=== PATIENT | male | born 1955 | race Caucasian/White ===

== ENCOUNTER 2021-06-19 16:37 | Inpatient (IN) | payer MEDICARE, OTHER ==
[~2021-06-19] VITALS: Ht 190.5 cm; Wt 71.0 kg
[2021-06-19] MEDS ORDERED: SODIUM CHLORIDE 0.9% 1,000 ML IV ONE ×2 (17:00→18:00)
[2021-06-19] MEDS ORDERED: NOREPINEPHRINE 8 MG/250ML KIT 250 ML IV ONE (17:44)
[2021-06-19] MEDS ORDERED: NOREPINEPHRINE 8 MG/250ML KIT 250 ML IV SCH (18:00)
[2021-06-19] MEDS ORDERED: IOHEXOL 350 MG/ML 100ML IJ ONE (18:14)
[2021-06-19 19:30] LABS: Albumin 2.8 g/dL (3.4-5.0); Calcium 7.7 mg/dL (8.5-10.1); Potassium 4.2 mmol/L (3.5-5.1)
[2021-06-19 19:36] LABS: BUN/Creatinine Ratio 16.3; Bilirubin, Total 2.1 mg/dL (0.2-1.0)
[2021-06-19 19:56] LABS: Basophils # (auto) 0 10 ^3/uL (0-0.2); Basophils % (auto) 0.1 % (0.0-2.0); Eosinophils # (auto) 0 10 ^3/uL (0-0.8); Hematocrit 37.7 % (41.0-53.0); Hemoglobin 12.6 g/dL (13.5-17.5); Lymphocytes # (auto) 0.6 10 ^3/uL (0.4-5.4); Lymphocytes % (auto) 3.4 % (10.0-50.0); Mean Corpuscular Hemoglobin 29.8 pg (28.0-32.0); Mean Corpuscular Hgb Conc. 33.4 g/dL (32.0-36.0); Mean Corpuscular Volume 89.3 fL (80.0-100.0); Monocytes # (auto) 0.8 10 ^3/uL (0-1.3); Monocytes % (auto) 4.4 % (0.0-12.0); Neutrophils % (auto) 92.1 % (37.0-80.0); Red Blood Cells 4.22 10^6/uL (4.5-5.90); Red Cell Distribution Width 12.7 % (11.8-14.3); White Blood Cell 18.4 10^3/uL (4.4-10.8)
[2021-06-19] MEDS ORDERED: ACETAMINOPHEN 325 MG TAB PO ONE (22:30)
[2021-06-20] MEDS ORDERED: DOCUSATE SOD 100 MG CAP PO PRN
[2021-06-20] MEDS ORDERED: NITROGLYCERIN 0.4 MG SL TAB SL PRN
[2021-06-20] MEDS ORDERED: HYDROcodone-ACET 5/325MG TAB PO PRN
[2021-06-20] MEDS ORDERED: ALBUMIN 25% 100 ML IV ONE
[2021-06-20] MEDS ORDERED: SOD CHL 0.45% 1,000 ML IV SCH
[2021-06-20] MEDS ORDERED: MORPHINE SULFATE 4 MG/ML SYR/VIAL IV PRN
[2021-06-20] MEDS ORDERED: MORPHINE SULFATE INJECTION 2 MG/ML SYRG IV PRN
[2021-06-20] MEDS ORDERED: ONDANSETRON HCL 4 MG/2 ML VIAL IV PRN
[2021-06-20 05:01] LABS: Basophils # (auto) 0 10 ^3/uL (0-0.2); Basophils % (auto) 0.1 % (0.0-2.0); Eosinophils # (auto) 0 10 ^3/uL (0-0.8); Hematocrit 38.1 % (41.0-53.0); Hemoglobin 12.8 g/dL (13.5-17.5); Lymphocytes # (auto) 0.9 10 ^3/uL (0.4-5.4); Lymphocytes % (auto) 5.7 % (10.0-50.0); Mean Corpuscular Hemoglobin 29.7 pg (28.0-32.0); Mean Corpuscular Hgb Conc. 33.5 g/dL (32.0-36.0); Mean Corpuscular Volume 88.6 fL (80.0-100.0); Monocytes # (auto) 0.5 10 ^3/uL (0-1.3); Monocytes % (auto) 3.3 % (0.0-12.0); Neutrophils # (auto) 14.8 10 ^3/uL (1.6-8.6); Neutrophils % (auto) 90.9 % (37.0-80.0); White Blood Cell 16.3 10^3/uL (4.4-10.8)
[2021-06-20 05:28] LABS: BUN/Creatinine Ratio 16.5; Potassium 3.9 mmol/L (3.5-5.1)
[2021-06-20 05:42] LABS: Bilirubin, Total 2.5 mg/dL (0.2-1.0); Total Protein 5.4 g/dL (6.4-8.2)
[2021-06-20 06:21] LABS: Cholesterol 108 mg/dL (< 200); Triglycerides 55 mg/dL (< 150)
[2021-06-20 06:24] LABS: HDL Cholesterol 54 mg/dL (40-59); LDL Cholesterol 48 mg/dL (< 100)
[2021-06-20] MEDS: ACETAMINOPHEN 325 MG TAB PO PRN ×2 (06:47→21:00)
[2021-06-20 07:29] LABS: Urine Bacteria NONE SEEN /hpf (None Seen); Urine Blood TRACE /uL (Negative); Urine Mucus FEW (None Seen); Urine WBC 2 /hpf (0 - 3)
[2021-06-20] MEDS ORDERED: cefTRIAXone 1GM/50ML D5W 50 ML IV SCH (09:00)
[2021-06-20] MEDS: ASPirin 81 mg TAB PO SCH (09:35)
[2021-06-20] MEDS: FAMOTIDINE (10MG/ML) 2ML VL IV SCH (09:35)
[2021-06-20] MEDS: ENOXAPARIN SOD 40 MG/0.4 ML SYRINGE SC SCH (09:35)
[2021-06-20] MEDS ORDERED: SODIUM CHLORIDE 0.9% 500 ML IV ONE (11:30)
[2021-06-20] MEDS ORDERED: AZITHROMYCIN 500MG/ 250ML 250 ML IV ONE (11:30)
[2021-06-20] MEDS: PIPERACILLIN-TAZOB 3.375GM 100 ML IV SCH ×3 (13:00→23:42)
[2021-06-20] MEDS: SODIUM CHLORIDE 0.9% 1,000 ML IV SCH ×2 (13:02→19:30)
[2021-06-20] MEDS ORDERED: OMNIPAQUE ORAL SOLN 500ml 12mg/ml PO ONE (14:06)
[2021-06-20 21:02] VITALS: BP 120/66
[2021-06-20 22:00] VITALS: BP 120/66
[2021-06-21] MEDS: SODIUM CHLORIDE 0.9% 1,000 ML IV SCH ×2 (02:45→11:00)
[2021-06-21 05:00] VITALS: BP 106/57
[2021-06-21] MEDS: PIPERACILLIN-TAZOB 3.375GM 100 ML IV SCH ×3 (05:47→17:45)
[2021-06-21 08:00] VITALS: BP 111/62
[2021-06-21] MEDS: ENOXAPARIN SOD 40 MG/0.4 ML SYRINGE SC SCH (10:22)
[2021-06-21] MEDS: FAMOTIDINE (10MG/ML) 2ML VL IV SCH (10:22)
[2021-06-21] MEDS: ASPirin 81 mg TAB PO SCH (10:22)
[2021-06-21] MEDS ORDERED: LEVOTHYROXINE SODIUM 100 MCG TAB PO ONE (11:00)
[2021-06-21] MEDS: AZITHROMYCIN 500MG/ 250ML 250 ML IV SCH (11:02)
[2021-06-21 12:00] VITALS: BP 116/62
[2021-06-21] MEDS ORDERED: LEV100T PO (13:06)
[2021-06-21 16:00] VITALS: BP 95/55
[2021-06-21 22:06] VITALS: BP 101/60
[2021-06-22] MEDS: SODIUM CHLORIDE 0.9% 1,000 ML IV SCH ×2 (00:20→13:26)
[2021-06-22 05:36] VITALS: BP 129/71
[2021-06-22 05:57] LABS: Basophils # (auto) 0 10 ^3/uL (0-0.2); Basophils % (auto) 0.3 % (0.0-2.0); Eosinophils # (auto) 0.1 10 ^3/uL (0-0.8); Eosinophils % (auto) 0.6 % (0.0-7.0); Hematocrit 35.8 % (41.0-53.0); Hemoglobin 12.5 g/dL (13.5-17.5); Lymphocytes # (auto) 1.1 10 ^3/uL (0.4-5.4); Lymphocytes % (auto) 13.6 % (10.0-50.0); Mean Corpuscular Hgb Conc. 34.9 g/dL (32.0-36.0); Mean Corpuscular Volume 88.6 fL (80.0-100.0); Monocytes # (auto) 0.5 10 ^3/uL (0-1.3); Monocytes % (auto) 5.8 % (0.0-12.0); Neutrophils # (auto) 6.6 10 ^3/uL (1.6-8.6); Neutrophils % (auto) 79.7 % (37.0-80.0); Red Blood Cells 4.04 10^6/uL (4.5-5.90); Red Cell Distribution Width 12.8 % (11.8-14.3); White Blood Cell 8.3 10^3/uL (4.4-10.8)
[2021-06-22 06:08] LABS: INR 0.98 (0.9-1.15); Partial Thromboplastin Time 30.6 sec (23.6-33.0)
[2021-06-22] MEDS: PIPERACILLIN-TAZOB 3.375GM 100 ML IV SCH ×4 (06:08→17:38)
[2021-06-22] MEDS: LEVOTHYROXINE SODIUM 100 MCG TAB PO SCH (06:08)
[2021-06-22 06:29] LABS: Calcium 8.2 mg/dL (8.5-10.1); Magnesium 2.6 mg/dL (1.6-2.6)
[2021-06-22 08:00] VITALS: BP 121/66
[2021-06-22] MEDS ORDERED: IOHEXOL 300 MG/ML 100ML BOTTLE IJ ONE (08:11)
[2021-06-22] MEDS ORDERED: OMNIPAQUE ORAL SOLN 500ml 12mg/ml PO ONE (08:11)
[2021-06-22] MEDS ORDERED: BENZOCAINE (DENTAL) 20 % SPRAY 60ML MT ONE (08:54)
[2021-06-22] MEDS ORDERED: MIDAZOLAM HCL 5 MG/ML-1ML VIAL ONE (08:55)
[2021-06-22] MEDS ORDERED: diphenhdrAMINE HCL 50 MG/1 ML VL ONE (08:55)
[2021-06-22] MEDS ORDERED: fentaNYL CITRATE 100 MCG/2 ML VL ONE (08:55)
[2021-06-22] MEDS ORDERED: SODIUM CHLORIDE LOCK 10 ML ONE (08:55)
[2021-06-22] MEDS: ENOXAPARIN SOD 40 MG/0.4 ML SYRINGE SC SCH (09:33)
[2021-06-22] MEDS: ASPirin 81 mg TAB PO SCH (09:33)
[2021-06-22] MEDS: FAMOTIDINE (10MG/ML) 2ML VL IV SCH (11:12)
[2021-06-22] MEDS: AZITHROMYCIN 500MG/ 250ML 250 ML IV SCH (11:13)
[2021-06-22 12:00] VITALS: BP 120/69
[2021-06-22 16:00] VITALS: BP 93/52
[2021-06-22 20:00] VITALS: BP 93/51
[2021-06-23] MEDS: PIPERACILLIN-TAZOB 3.375GM 100 ML IV SCH ×5 (00:14→23:47)
[2021-06-23] MEDS: SODIUM CHLORIDE 0.9% 1,000 ML IV SCH ×2 (03:00→17:26)
[2021-06-23] MEDS: LEVOTHYROXINE SODIUM 100 MCG TAB PO SCH (06:21)
[2021-06-23 09:00] VITALS: BP 124/72
[2021-06-23] MEDS: FAMOTIDINE (10MG/ML) 2ML VL IV SCH (09:33)
[2021-06-23] MEDS: ASPirin 81 mg TAB PO SCH (09:34)
[2021-06-23] MEDS: AZITHROMYCIN 500MG/ 250ML 250 ML IV SCH (09:34)
[2021-06-23] MEDS: ENOXAPARIN SOD 40 MG/0.4 ML SYRINGE SC SCH (09:35)
[2021-06-23 13:00] VITALS: BP 109/55
[2021-06-23 22:00] VITALS: BP 117/73
[2021-06-24 05:00] VITALS: BP 131/69
[2021-06-24] MEDS: SODIUM CHLORIDE 0.9% 1,000 ML IV SCH ×2 (05:40→18:46)
[2021-06-24] MEDS: LEVOTHYROXINE SODIUM 100 MCG TAB PO SCH (06:51)
[2021-06-24] MEDS: PIPERACILLIN-TAZOB 3.375GM 100 ML IV SCH ×4 (06:52→23:25)
[2021-06-24 09:00] VITALS: BP 137/76
[2021-06-24] MEDS: AZITHROMYCIN 500MG/ 250ML 250 ML IV SCH (09:23)
[2021-06-24] MEDS ORDERED: BENZOCAINE (DENTAL) 20 % SPRAY 60ML MT ONE (09:52)
[2021-06-24] MEDS ORDERED: MIDAZOLAM HCL 5 MG/ML-1ML VIAL ONE (09:53)
[2021-06-24] MEDS ORDERED: LIDOCAINE HCL 2% TOP JELLY 5ML TOP ONE (09:53)
[2021-06-24] MEDS ORDERED: EPINEPHrine HCL 1 MG/1 ML AMP ONE (09:53)
[2021-06-24] MEDS ORDERED: fentaNYL CITRATE 100 MCG/2 ML VL ONE (09:54)
[2021-06-24] MEDS: ENOXAPARIN SOD 40 MG/0.4 ML SYRINGE SC SCH (10:00)
[2021-06-24] MEDS: ASPirin 81 mg TAB PO SCH (10:00)
[2021-06-24] MEDS: LIDOCAINE 2%HCL (LOCAL ANESTH.) INJ 20ML MDV ONE ×2 (11:23→16:41)
[2021-06-24] MEDS ORDERED: ALBUTEROL SULF 2.5 MG/0.5ML(0.5%) NEB SOLN NEB ONE (11:45)
[2021-06-24 13:00] VITALS: BP 118/68
[2021-06-24 17:00] VITALS: BP 116/63
[2021-06-24 22:00] VITALS: BP 133/71
[2021-06-25 05:00] VITALS: BP 128/69
[2021-06-25] MEDS: PIPERACILLIN-TAZOB 3.375GM 100 ML IV SCH (05:40)
[2021-06-25] MEDS: LEVOTHYROXINE SODIUM 100 MCG TAB PO SCH (05:40)
[2021-06-25 08:59] VITALS: BP 113/67
[2021-06-25] MEDS: ENOXAPARIN SOD 40 MG/0.4 ML SYRINGE SC SCH (09:24)
[2021-06-25] MEDS: AZITHROMYCIN 500MG/ 250ML 250 ML IV SCH (09:24)
[2021-06-25] MEDS: ASPirin 81 mg TAB PO SCH (09:24)
[2021-06-25] MEDS: SODIUM CHLORIDE 0.9% 1,000 ML IV SCH (09:25)
[2021-06-25 12:38] VITALS: BP 111/67
[2021-06-25 12:59] VITALS: BP 111/67
== END 2021-06-25 14:35 | disposition home or self-care (01) | DRG 871 ==
LOC: ER 16:37 → TELE 23:51 → TELE-WESTW 06-20 19:43 → WEST WING 06-24 12:07
PROVIDERS: ADMIT Nurse Practitioner Family; ATTEND Internal Medicine Geriatric Medicine
PROC: 0B978ZZ Drainage of Left Main Bronchus, Via Natural or Artificial Opening Endoscopic (ICD-10-PCS; principal; 2021-06-24 11:16)
DX: A41.9 Sepsis, unspecified organism (principal); J18.9 Pneumonia, unspecified organism; J96.00 Acute respiratory failure, unspecified whether with hypoxia or hypercapnia; J98.11 Atelectasis; R17 Unspecified jaundice; E88.09 Other disorders of plasma-protein metabolism, not elsewhere classified; I95.0 Idiopathic hypotension; E86.0 Dehydration; E03.9 Hypothyroidism, unspecified; I25.10 Atherosclerotic heart disease of native coronary artery without angina pectoris; R91.8 Other nonspecific abnormal finding of lung field; Z20.822 Contact with and (suspected) exposure to COVID-19; R54 Age-related physical debility; Z90.49 Acquired absence of other specified parts of digestive tract
CPT/HCPCS: 31622; 36415; 71045; 71275; 74177; 80048; 80053; 80061; 81001; 82728; 83735; 83880; 84443; 84484; 85025; 85379; 85610; 85730; 86141; 87040; 87070; 87205; 87426; 93005; 93306; 94640; 96360; 96361; G0378; J0171; J0696; J2250; J2543; J3490; P9047

== ENCOUNTER 2021-07-10 13:24 | Inpatient (IN) | payer MEDICARE ==
[~2021-07-10] VITALS: Ht 190.5 cm; Wt 70.0 kg
[~2021-07-10 13:24] MED LIST: LEV100T PO
[2021-07-10 14:40] LABS: Basophils # (auto) 0.1 10 ^3/uL (0-0.2); Basophils % (auto) 0.9 % (0.0-2.0); Eosinophils # (auto) 0 10 ^3/uL (0-0.8); Eosinophils % (auto) 0.1 % (0.0-7.0); Hematocrit 41.7 % (41.0-53.0); Hemoglobin 14.2 g/dL (13.5-17.5); Lymphocytes # (auto) 0.2 10 ^3/uL (0.4-5.4); Lymphocytes % (auto) 3.2 % (10.0-50.0); Mean Corpuscular Hemoglobin 30.4 pg (28.0-32.0); Mean Corpuscular Volume 89.4 fL (80.0-100.0); Monocytes # (auto) 0.7 10 ^3/uL (0-1.3); Monocytes % (auto) 9.6 % (0.0-12.0); Neutrophils % (auto) 86.2 % (37.0-80.0); Nucleated Red Blood Cells % 0.1 %; Red Blood Cells 4.67 10^6/uL (4.5-5.90); Red Cell Distribution Width 13.8 % (11.8-14.3)
[2021-07-10 14:54] LABS: Albumin 3.6 g/dL (3.4-5.0); Calcium 8.6 mg/dL (8.5-10.1); Potassium 3.8 mmol/L (3.5-5.1)
[2021-07-10 15:00] LABS: BUN/Creatinine Ratio 15.5; Bilirubin, Total 1.4 mg/dL (0.2-1.0); Total Protein 6.7 g/dL (6.4-8.2)
[2021-07-10] MEDS ORDERED: NITROGLYCERIN 0.4 MG SL TAB SL PRN ×2 (17:00→21:15)
[2021-07-10] MEDS ORDERED: MORPHINE SULFATE INJECTION 2 MG/ML SYRG IV PRN ×3 (17:00→21:15)
[2021-07-10 19:46] VITALS: BP 131/66
[2021-07-10 20:22] VITALS: BP 131/66
[2021-07-10] MEDS ORDERED: ALBUTEROL SULF 2.5 MG/0.5ML(0.5%) NEB SOLN NEB PRN (21:15)
[2021-07-10] MEDS ORDERED: ACETAMINOPHEN 325 MG TAB PO PRN (21:15)
[2021-07-10] MEDS ORDERED: IPRATROPIUM BROM 0.5 MG/2.5ML INH SOL NEB ONE (21:15)
[2021-07-10] MEDS ORDERED: BUDESONIDE (INHALATION) 0.5 MG/2 ML NEB NEB ONE (21:15)
[2021-07-10] MEDS ORDERED: ONDANSETRON HCL 4 MG/2 ML VIAL IV PRN (21:15)
[2021-07-10] MEDS ORDERED: HYDROcodone-ACET 5/325MG TAB PO PRN (21:15)
[2021-07-10] MEDS ORDERED: FAMOTIDINE (10MG/ML) 2ML VL IV ONE (21:15)
[2021-07-10] MEDS ORDERED: SODIUM CHLORIDE 0.9% 1,000 ML IV SCH (21:15)
[2021-07-10] MEDS ORDERED: metroNIDAZOLE 500MG/100ML 100 ML IV ONE (21:15)
[2021-07-10] MEDS ORDERED: ALUM & MAG HYDROX-SIMETH LIQ(MAALOX) 30 ML PO PRN (21:15)
[2021-07-10] MEDS ORDERED: hydrALAZINE HCL 20 MG/ML VL IV PRN (21:15)
[2021-07-10] MEDS ORDERED: LORazepam 0.5 MG TAB PO PRN (21:15)
[2021-07-10] MEDS ORDERED: ALBUTEROL SULF 2.5 MG/0.5ML(0.5%) NEB SOLN NEB ONE (21:15)
[2021-07-10 21:44] LABS: Cholesterol 156 mg/dL (< 200); HDL Cholesterol 71 mg/dL (40-59); LDL Cholesterol 77 mg/dL (< 100); Triglycerides 70 mg/dL (< 150)
[2021-07-10] MEDS: AMPICILLIN & SULBACTAM SODIUM 3 GM in SODIUM CHL 0.9% 100 ML IV SCH (22:00)
[2021-07-10] MEDS ORDERED: CLIN300C8 PO (22:24)
[2021-07-11] MEDS ORDERED: IPRATROPIUM BROM 0.5 MG/2.5ML INH SOL NEB PRN (02:00)
[2021-07-11] MEDS ORDERED: IPRATROPIUM BROM 0.5 MG/2.5ML INH SOL NEB SCH (02:00)
[2021-07-11 04:18] VITALS: BP 131/66
[2021-07-11 05:15] VITALS: BP 105/59
[2021-07-11] MEDS ORDERED: metroNIDAZOLE 500MG/100ML 100 ML IV SCH (06:00)
[2021-07-11] MEDS: AMPICILLIN & SULBACTAM SODIUM 3 GM in SODIUM CHL 0.9% 100 ML IV SCH (06:30)
[2021-07-11 07:08] LABS: INR 1.1 (0.9-1.15); Partial Thromboplastin Time 27.2 sec (23.6-33.0)
[2021-07-11 07:11] LABS: Basophils # (auto) 0 10 ^3/uL (0-0.2); Basophils % (auto) 0.8 % (0.0-2.0); Eosinophils # (auto) 0 10 ^3/uL (0-0.8); Hematocrit 40.7 % (41.0-53.0); Hemoglobin 13.8 g/dL (13.5-17.5); Lymphocytes # (auto) 0.5 10 ^3/uL (0.4-5.4); Lymphocytes % (auto) 9.2 % (10.0-50.0); Mean Corpuscular Hgb Conc. 33.9 g/dL (32.0-36.0); Mean Corpuscular Volume 88.6 fL (80.0-100.0); Monocytes # (auto) 0.8 10 ^3/uL (0-1.3); Monocytes % (auto) 14.9 % (0.0-12.0); Neutrophils # (auto) 4.2 10 ^3/uL (1.6-8.6); Neutrophils % (auto) 75.1 % (37.0-80.0); Nucleated Red Blood Cells % 0.1 %; Red Cell Distribution Width 13.7 % (11.8-14.3); White Blood Cell 5.6 10^3/uL (4.4-10.8)
[2021-07-11 07:16] LABS: Magnesium 2.3 mg/dL (1.6-2.6); Phosphorus 3.1 mg/dL (2.5-4.90)
[2021-07-11 09:00] VITALS: BP 92/43
[2021-07-11] MEDS: ENOXAPARIN SOD 40 MG/0.4 ML SYRINGE SC SCH ×2 (10:00→10:03)
[2021-07-11] MEDS ORDERED: BUDESONIDE (INHALATION) 0.5 MG/2 ML NEB NEB SCH (10:00)
[2021-07-11] MEDS ORDERED: FAMOTIDINE (10MG/ML) 2ML VL IV SCH (10:00)
[2021-07-11] MEDS ORDERED: AMPICILLIN & SULBACTAM SODIUM 3 GM in SODIUM CHL 0.9% 100 ML IV SCH (12:30)
[2021-07-11 12:43] VITALS: BP 109/64
[2021-07-11 13:20] VITALS: BP 109/64
[2021-07-13 09:17] LABS: Free T3 2.38 pg/mL (2.3-4.2); Free T4 (Free Thyroxine) 1.24 ng/dL (0.89-1.76)
== END 2021-07-11 14:00 | disposition home or self-care (01) | DRG 194 ==
LOC: ER 13:24 → TELE-WESTW 16:56
PROVIDERS: ADMIT Hospitalist; ATTEND Hospitalist
DX: J18.9 Pneumonia, unspecified organism (principal); J47.0 Bronchiectasis with acute lower respiratory infection; E03.8 Other specified hypothyroidism; F17.200 Nicotine dependence, unspecified, uncomplicated; I25.10 Atherosclerotic heart disease of native coronary artery without angina pectoris; K21.9 Gastro-esophageal reflux disease without esophagitis; Z90.49 Acquired absence of other specified parts of digestive tract; Z20.822 Contact with and (suspected) exposure to COVID-19
CPT/HCPCS: 36415; 71045; 71250; 80053; 80061; 83036; 83735; 83880; 84100; 84439; 84443; 84481; 84484; 85025; 85610; 85730; 86160; 87040; 87081; 87426; 93005; 94640; G0378; J3490